=== PATIENT | female | born 1940 | race Hispanic/Latino ===

== ENCOUNTER 2017-06-15 09:59 | Outpatient (CLI) | payer MEDICARE, MEDICAID ==
--- NOTE | 2017-06-15 10:26 | RAD ---
ABDOMEN ONE VIEW: History: Abdominal pain. Comparison: None. FINDINGS: There is mild degenerative changes of the thoracolumbar spine. Mild levoscoliosis. No phleboliths in the pelvis. There are degenerative changes of the SI joints. IMPRESSION: No acute intraabdominal abnormality. POS: [facility]
== END 2017-06-15 10:00 | disposition home or self-care (01) ==
LOC: RAD-FRANK 09:59
PROVIDERS: ATTEND Nurse Practitioner Family
DX: R10.9 Unspecified abdominal pain (principal)
CPT/HCPCS: 74018

== ENCOUNTER 2017-07-06 09:09 | Outpatient (CLI) | payer MEDICARE, MEDICAID ==
--- NOTE | 2017-07-06 11:32 | RAD ---
EXAM: LUMBAR SPINE 3 VIEWS: COMPARISON: 12/20/16. HISTORY: Lumbar radiculopathy. Pain radiates down the right leg x 3 months. FINDINGS: Lateral neutral, lateral extension, and lateral flexion of the lumbar spine are submitted for interpr etation. The lateral neutral radiograph is slightly limited due to motion. There are 5 lumbar-type vertebral bodies. There is approximately 1 cm of anterolisthesis of L4 upon L5 in the neutral positi on. Upon flexion, there is 1.4 cm anterolisthesis of L4 upon L5. Upon extension, there is 0.7 cm of anterolisthesis of L4 upon L5. There is degenerative change at L5-S1 with significant osteophyte formation. IMPRESSION: Anterolisthesis (grade II) of L4 upon L5 with worsening upon flexion and slight decrease upon extensi on. POS: [facility]
== END 2017-07-06 09:10 | disposition home or self-care (01) ==
LOC: TBSIIMAG 09:09
PROVIDERS: ATTEND Neurological Surgery
DX: M54.16 Radiculopathy, lumbar region (principal); M43.16 Spondylolisthesis, lumbar region
CPT/HCPCS: 72100

== ENCOUNTER 2017-08-18 15:46 | Outpatient (CLI) | payer MEDICARE, MEDICAID ==
[2017-08-18 16:21] LABS: Hemoglobin 11.8 g/dL (12.0-16.0); Mean Corpuscular HGB CONC 33.6 g/dL (32.0-36.0); Mean Corpuscular Volume 89.4 fl (81.0-99.0); Mean Platelet Volume 8.4 fL (7.4-10.4); Platelet Count 217 thou/uL (130-400); RBC Distribution Width 11.9 % (11.5-14.5); Red Blood Cell (RBC) Count 3.92 mill/uL (4.20-5.40); White Blood Cell (WBC) Count 5.4 thou/uL (4.8-10.8)
[2017-08-18 16:26] LABS: INR-International Normal Ratio 1.1; PTT 31.9 SEC (22.9-36.1); Prothrombin Time 14.8 SEC (12.0-14.7)
[2017-08-18 16:53] LABS: Anion Gap 12 mmol/L (10-20); BUN (Urea Nitrogen) 14 mg/dL (9.8-20.1); Calc. Creatinine Clearance 0 mL/min (70-130); Calcium 8.7 mg/dL (7.8-10.44); Carbon Dioxide 25 mmol/L (23-31); Chloride 106 mmol/L (98-107); Estimated GFR-MDRD Greater than 90; Glucose 112 mg/dL (83-110); Potassium 3.6 mmol/L (3.5-5.1); Sodium 139 mmol/L (136-145)
== END 2017-08-18 15:47 | disposition home or self-care (01) ==
LOC: LABBT 15:46
PROVIDERS: ATTEND Neurological Surgery
DX: Z01.812 Encounter for preprocedural laboratory examination (principal); M43.16 Spondylolisthesis, lumbar region
CPT/HCPCS: 80048; 85027; 85610; 85730

== ENCOUNTER 2017-08-18 16:00 | Inpatient (IN) | payer MEDICARE, MEDICAID ==
[2017-08-18 16:11] VITALS: BMI 41.8
--- NOTE | 2017-08-22 17:34 | HP ---
HISTORY OF PRESENT ILLNESS: Ms. Brady is a 76-year-old female who presents with low back pain a nd left leg pain to the ankle. He is also very tender over the left greater trochanteric bursitis an d SI joint. He has had this pain with internal rotation of the left hip. The pain has been present intermittently for 1 year; however, this is worse in the past 3 months. She has had physical therapy and injections. The pain is made worse with standing and lying flat. The pain is made somewhat bet ter with tramadol and taking steroids. She has seen her primary care physician and had an x-ray that showed a grade 2 spondylolisthesis at L4-L5 and she has had good strength in bilateral lower extremi ties. She denies any bowel or bladder incontinence. REVIEW OF SYSTEMS: Ten-point review of systems is complete and is otherwise negative unless stated a wil in HPI. PAST MEDICAL HISTORY: Diabetes, thyroid, hypertension, and high cholesterol. PAST SURGICAL HISTORY: Hysterectomy, left rotator cuff repair, complete thyroidectomy, and left TKR in 2016. HOSPITALIZATIONS: For surgery. FAMILY HISTORY: Father is diagnosed with diabetes, hypertension, and stroke. Mother is diagnosed wi th diabetes and hypertension. SOCIAL HISTORY: The patient denies any tobacco or alcohol use. She is a . MEDICATIONS: Taking, 1. Gabapentin 100 mg capsule orally 3 times a day. 2. Metformin HCL. 3. Levothyroxine sodium. 4. Glyburide. 5. Meloxicam. 6. Lisinopril/hydrochlorothiazide. 7. Tramadol 50 mg tablet 1 tablet orally q.6 hours for pain. 8. Cipro 500 mg tablet 1 tab orally twice a day. ALLERGIES: No known drug allergies. PHYSICAL EXAMINATION: HEENT: Normocephalic, atraumatic. Hearing intact. Moist mucous membranes. Trachea is midline. EYES: Pupils are equal and reactive to light. Extraocular muscles are intact. Sclerae is white, no nicteric. PSYCHIATRIC: Normal mood and affect. CARDIOVASCULAR/CARDIOPULMONARY: No cyanosis or clubbing noted. Intact pedal pulses bilaterally. MUSCULOSKELETAL: Lower extremity, 5/5 strength in bilateral iliopsoas, quadriceps, hamstrings, right tibialis anterior, extensor hallus longus. Sensory deficits in the left L5 nerve dermatome. Tender to palpation in the midline lumbar spine over the bilateral SI. Trochanteric bursitis. RESPIRATORY: The patient has bilateral symmetric chest rise. Appears to have no shortness of breath . NEUROLOGIC: Cranial nerves II-XII are grossly intact. Speech is fluent. Patient has antalgic gait and station. ASSESSMENT: 1. The patient has spondylolisthesis of L4-L5 level. 2. Lumbago with sciatica, left side. 3. Chronic pain. 4. Lumbar radiculopathy. The patient has tried conservative therapy including injections and physic al therapy; however, these have not given him full relief. IMAGING: MRI of the brain is normal. There is no stroke that caused her acute deterioration in the walking. Dr. Padron recommended an ACDF at C5-C7 for cervical stenosis and cord compression in . The patient recently visited Dr. Padron in 06/2017. MRI of the lumbar spine shows L3-L4 sten osis and L4-L5 lateral recess with listhesis, L2-L3 moderate disease. Flexion, extension x-rays are unstable L4-L5 interspace with greater than 5 mm of excursion between flexion and extension. PLAN: Dr. Padron offered a L3-L5 laminectomy with an L4-L5 TLIF. There is a striking instability in the lumbar spine. Informed consent was given. We discussed the indications, risks, benefits, an d expected results from surgery. The risks discussed included, but were not limited to bleeding, inf ection, CSF leak, nerve damage, weakness, incontinence, cauda equina injury, arachnoiditis, paralysis , ventilator dependence, wheelchair dependence, loss of vision, hardware misplacement, cardiopulmonar y complications of anesthesia or . Long-term complications discussed included, but were not kaplan ited to degeneration of the surrounding disk and future surgery. She understands risks and is willin g to proceed with the surgery. The patient is a diabetic patient. so she may need suture closure, a ntibiotics and bone stimulator.
[2017-08-24] MEDS ORDERED: Sodium Chloride 0.9% 30 ML ONE (06:23)
[2017-08-24] MEDS ORDERED: Bupivacaine HCl 0.5%/Epinephrine 1:200,000/PF 30 ml Vial ONE (06:23)
[2017-08-24] MEDS ORDERED: Thrombin 5000 UNITS/5 ML VIAL ONE ×2 (06:23→09:12)
[2017-08-24] MEDS ORDERED: Albumin 5% 500 ML ONE (06:42)
[2017-08-24] MEDS ORDERED: Phenylephrine HCL 10 MG/ML VIAL ONE (06:42)
[2017-08-24] MEDS ORDERED: Fentanyl 250 MCG/5 ML VIAL ONE (06:56)
[2017-08-24] MEDS ORDERED: CEFAZOLIN/Water 2 GM/20 ML SYRINGE ONE (06:58)
[2017-08-24] MEDS ORDERED: Metoclopramide HCl 10 MG/2 ML VIAL ONE ×2 (09:44→15:09)
[2017-08-24] MEDS ORDERED: Meperidine HCl/PF 25 MG/ML VIAL SLOW IVP PRN (11:24)
[2017-08-24] MEDS ORDERED: HYDROmorphone 2 MG/ML VIAL SLOW IVP PRN (11:24)
[2017-08-24] MEDS ORDERED: Morphine Sulfate 2 MG/ML SYRINGE SLOW IVP PRN (11:24)
[2017-08-24] MEDS ORDERED: Ondansetron HCl/PF 4 MG/2 ML Vial IVP PRN ×2 (11:24→11:27)
[2017-08-24] MEDS ORDERED: Promethazine HCl 25 MG/ML VIAL SLOW IVP PRN (11:24)
[2017-08-24] MEDS ORDERED: Promethazine HCl 25 MG/ML VIAL IM PRN (11:24)
[2017-08-24] MEDS ORDERED: HYDROmorphone 0.5 MG/0.5 ML SYRINGE ONE ×3 (11:25→12:22)
[2017-08-24] MEDS ORDERED: Acetaminophen/Codeine 30-300mg Tablet PO PRN (11:27)
[2017-08-24] MEDS ORDERED: Morphine 4 MG/ML VIAL SLOW IVP PRN ×2 (11:27)
--- NOTE | 2017-08-24 12:04 | OP ---
DATE OF PROCEDURE: 08/24/2017 SURGEON: Angela Padron M.D. HARDWARE DEVELOPER: Kenneth Wang PA-C. PREOPERATIVE INDICATION: Treat pain, prevent neurological deterioration. PREOPERATIVE DIAGNOSES: Lumbar stenosis with neurogenic claudication and L4-5 spondylolisthesis with foraminal stenosis from subluxation and instability. POSTOPERATIVE DIAGNOSES: Lumbar stenosis with neurogenic claudication and L4-5 spondylolisthesis wit h foraminal stenosis from subluxation and instability. OPERATIVE PROCEDURE: Decompressive laminectomy, medial facetectomy, foraminotomy L3-4, L4-5, transfo raminal lumbar interbody arthrodesis L4-L5, placement of intervertebral biomechanical device L4-L5, p edicle screw and martha instrumentation L4-L5, posterolateral arthrodesis L4-L5, local morselized autogr aft, morselized Allograft. PREOPERATIVE MEDICATION: Ancef 2 grams IV. DRAIN NUMBER: Zero. DRAIN TYPE: None. OPERATIVE DICTATION: The patient was brought to the operating room. General endotracheal anesthesia was induced. The patient was positioned prone on the Jack frame with appropriate padding for the chest and hips. A lateral fluoro radiograph was used to plan our incision. The lumbar skin was filiberto rilely prepped and draped. We opened with a 10 blade knife and controlled bleeding with bipolar and monopolar cautery. We used monopolar cautery to dissect through subcutaneous tissues to the thoracod orsal fascia. We incised the fascia in the midline and we reflected the paraspinal muscles off the s pinous process and lamina of L3, L4, L5. A self-retaining retractor was placed and a lateral fluoro radiograph confirmed the levels upon which we were operating. We then used Adson rongeurs to remove the spinous processes from L3 to the top of L5 and Kerrison rongeurs to fashion a laminectomy. We wi dened our laminectomy defect until we were flush with the L3, L4, L5 pedicles. We performed medial f acetectomies to undermine the lateral recesses and performed foraminotomies with foraminotomy Kerriso n's over the exiting nerve roots at L3, L4, and L5. At completion of our neural decompression, we tu rned our attention to arthrodesis. We removed the entire facet joint at L4-5 on the right side. Through the foramen we could access the intervertebral space. We incised the intervertebral space and removed disk contents using curettes and rongeurs. We brought a rectangular shaped bone rasp into the field. We used this to prepare the endplates for grafting ends and measured the height of the interspace to 12 mm. We prepared the end plates with curettes as well. We irrigated with bacitracin irrigation. We then brought a 12 mm PEEK intervertebral graft in the field. Our laminectomy bone was carefully cleaned on the back table, al l soft tissue was removed and it was morcellized into demineralized bone matrix as our fusion substra te. The substrate was packed into our PEEK graft and the graft was advanced into the interspace unde r radiographic guidance to the appropriate depth. We turned our attention to pedicle screw instrumen tation. Using bony anatomic landmarks, palpation of the medial portion of the pedicles, and a lateral fluoro radiograph as a guide, we chose entry points for pedicle screws at L4, L5. We drilled out our entry points and used the bone awl to fashion a trajectory through the pedicles into the vertebral bodies. We tapped the trajectories, probed them and found them completely encased in bone. We placed 6.5 mm diameter screws at L4 and L5 bilaterally. A 360 degree image set was generated with our isocentric C-arm. This confirmed adequate positioning of our pedicle screws. We then brought rods down in the screw heads and tightened caps over the rods. Using a uwjpnr-munogua-wjqjie mechanism, we ensured ad equate tightness. Before final tightening, we used compression across the interspace to keep her int erbody graft in place. We irrigated the posterolateral spine. We used high speed drill to decortica te the transverse process of L4 and L5 bilaterally. Over the decorticated bone, we left demineralize d bone matrix and morselized autograft as are posterolateral fusion substrate. We irrigated the cent er of the incision once again with bacitracin irrigation. We treated the wound with vancomycin powde r and closed the wound in anatomic layers. We applied a sterile dressing. This was a clean case and no contamination.
[2017-08-24] MEDS: Sodium Chloride 0.9% 1,000 ML IV SCH ×2 (13:35→22:06)
[2017-08-24] MEDS: CEFAZOLIN/Water 2 GM/20 ML SYRINGE SLOW IVP SCH ×2 (14:36→22:14)
[2017-08-24] MEDS ORDERED: Glycopyrrolate 0.2 MG/ML 5 ML SYRINGE ONE (15:09)
[2017-08-24] MEDS ORDERED: Lidocaine 1% PF 5 ML VIAL ONE (15:09)
[2017-08-24] MEDS ORDERED: Ondansetron HCl/PF 4 MG/2 ML Vial ONE (15:09)
[2017-08-24] MEDS ORDERED: PHENYLEPHRINE-NS 100 MCG/ML 10 ML SYRINGE ONE (15:09)
[2017-08-24] MEDS ORDERED: Propofol 200 MG/20 ML VIAL ONE (15:09)
[2017-08-24] MEDS ORDERED: ePHEDrine/0.9% NaCl/PF SYRINGE 50 mg/10 ml ONE (15:09)
[2017-08-24] MEDS: metFORMIN 500 MG TAB PO SCH (17:56)
[2017-08-24] MEDS ORDERED: Prevnar 13-Val Conj/PF 0.5 ML SYRINGE IM ONE (21:00)
[2017-08-24] MEDS ORDERED: FLU VACC TS2017-18 (>65YR) 0.5 ML SYRINGE IM ONE (21:00)
[2017-08-24] MEDS: Pravastatin Sodium 20 MG TAB PO SCH (21:52)
[2017-08-24] MEDS: Lisinopril/Hydrochlorothiazide 20 mg/12.5 mg Tablet PO SCH (21:52)
[2017-08-24] MEDS: Oxybutynin 5 MG TAB PO SCH (21:54)
[2017-08-25] MEDS: Cyclobenzaprine 10 MG TAB PO PRN ×2 (04:18→23:00)
[2017-08-25 05:03] LABS: #Lymphocytes 0.9 thou/uL (1.20-3.40); #Monocytes 0.6 thou/uL (0.11-0.59); #Neutrophils 5.4 thou/uL (1.40-6.50); %Basophils 0.1 % (0.0-1.0); %Eosinophils 0.3 % (0.0-10.0); %Lymphocytes 13.4 % (21.0-51.0); %Monocytes 8.7 % (0.0-10.0); %Neutrophils 77.5 % (42.0-75.0); Mean Corpuscular HGB CONC 34.4 g/dL (32.0-36.0); Mean Corpuscular Hemoglobin 31.5 pg (27.0-31.0); Mean Corpuscular Volume 91.6 fl (81.0-99.0); Mean Platelet Volume 8.3 fL (7.4-10.4); Platelet Count 192 thou/uL (130-400); RBC Distribution Width 11.8 % (11.5-14.5); Red Blood Cell (RBC) Count 3.18 mill/uL (4.20-5.40); White Blood Cell (WBC) Count 6.9 thou/uL (4.8-10.8)
[2017-08-25] MEDS: Levothyroxine Sodium 125 MCG TAB PO SCH (05:39)
--- NOTE | 2017-08-25 07:13 | PRG ---
DATE OF SERVICE: 08/25/2017 Ms. Brady is status post 1 day from a L3 through L5 laminectomy and L4-L5 TLIF for spondylolisth esis. She has been able to get up and walk approximately 300 feet with PT. She has been wearing the LSO brace. She has been able to tolerate regular diet and her pain was well controlled with pain me dication. Overnight, there have been no acute events. Her vital signs have been stable. She is afe brile. She had a bout of tachycardia this morning at 1:03. Her hemoglobin this morning is 10. On c hemistry exam, her glucose is 148. She is doing well. She can continue to work with physical therap y throughout the day today. If she is doing well ambulating then we can consider discharge home. If there are any further questions, please feel free to contact Neurosurgery.
--- NOTE | 2017-08-25 07:19 | PRG ---
DATE OF SERVICE: 08/25/2017 Ms. Brady is 1 day out from decompression fusion lumbar spine. The radiating neurogenic pain in her lower extremities is gone. Her back is sore. She has already been out of bed and walking. She is doing quite well given her surgery. Her vital signs have been stable. I do not find any new neurological deficits. We will ask physical therapy to work with her today and once she is safe for her activities of daily living, she can be discharged from the hospital.
[2017-08-25] MEDS: Lisinopril/Hydrochlorothiazide 20 mg/12.5 mg Tablet PO SCH ×2 (09:53→23:00)
[2017-08-25] MEDS: Liothyronine Sodium 25 MCG TAB PO SCH (09:53)
[2017-08-25] MEDS: Oxybutynin 5 MG TAB PO SCH ×2 (09:54→23:04)
[2017-08-25] MEDS: Acetaminophen/Codeine 30-300mg Tablet PO PRN ×2 (09:54→13:21)
[2017-08-25] MEDS: metFORMIN 500 MG TAB PO SCH ×2 (09:54→17:12)
[2017-08-25] MEDS: Potassium Chloride 10 MEQ TAB PO SCH (09:54)
[2017-08-25] MEDS: Sodium Chloride 0.9% 1,000 ML IV SCH (14:02)
[2017-08-25] MEDS ORDERED: Sodium Chloride 0.9% 500 ML IVPB SCH (16:00)
[2017-08-25] MEDS: Pravastatin Sodium 20 MG TAB PO SCH (23:02)
[2017-08-26] MEDS ORDERED: Acetaminophen 325 MG TAB PO SCH (00:45)
[2017-08-26] MEDS: Sodium Chloride 0.9% 1,000 ML IV SCH ×2 (05:12→08:35)
[2017-08-26] MEDS: Levothyroxine Sodium 125 MCG TAB PO SCH (06:18)
[2017-08-26] MEDS: Lisinopril/Hydrochlorothiazide 20 mg/12.5 mg Tablet PO SCH (08:25)
[2017-08-26] MEDS: Oxybutynin 5 MG TAB PO SCH (08:34)
[2017-08-26] MEDS: Liothyronine Sodium 25 MCG TAB PO SCH (08:34)
[2017-08-26] MEDS: Potassium Chloride 10 MEQ TAB PO SCH (08:34)
[2017-08-26] MEDS: metFORMIN 500 MG TAB PO SCH (08:34)
--- NOTE | 2017-08-26 10:14 | PRG ---
DATE OF SERVICE: 08/26/2017 Ms. Brady is 2 days out from decompression fusion of lumbar spine. She had a low grade fever ov ernight. Otherwise, she is doing well. She ambulated and walked around the hallway 3 times yesterda y. Her legs feel better than they did before surgery. Her back is understandably sore. I do not find any neurological deficits. For this low grade fever, we will get a urine culture and u rinalysis. We will ask her to use the incentive spirometer more frequently and I will scan her legs for any DVT. If all of these tests are negative, we can send her home today.
[2017-08-26 11:24] LABS: Bilirubin Negative (Negative); Blood, Urine Negative (Negative); Clarity CLEAR (Clear); Glucose, Urine (Dipstick) Negative (Negative); Leukocyte Negative (Negative); Nitrite Negative (Negative); Protein, Urine (Dipstick) Negative (Neg-Trace); Specific Gravity, Urine 1.015 (1.002-1.036); pH, Urine 5.5 (5.0-9.0)
[2017-08-26 11:29] LABS: Bacteria/HPF None Seen HPF (None Seen); Hyaline Casts/LPF 4-6 HYALINE CAST LPF (0-3 Hyaline); Pathc Cast-AUWi Flag 0.81 (0-2.49); RBC/HPF 0-3 HPF (0-3); Squamous Epithelial 0-3 HPF (0-3); WBC/HPF 0-3 HPF (0-3)
[2017-08-26] MEDS: Acetaminophen/Codeine 30-300mg Tablet PO PRN (14:41)
--- NOTE | 2017-08-26 15:02 | ULT ---
BILATERAL LOWER EXTREMITY VENOUS DUPLEX ULTRASOUND INCLUDING COLOR AND SPECTRAL DOPPLER IMAGING: HISTORY: A 76-year-old female with immobility. FINDINGS: Exam performed from groin to ankle including greater saphenous, common femoral, superficial femoral, profunda femoral, popliteal, trifurcation, and posterior tibial vein regions. Phasic flow noted at a ll levels with normal compressibility and normal augmentation. Minimal bilateral subcutaneous edema of the lower extremities. IMPRESSION: Minimal bilateral lower extremity subcutaneous edema. No evidence for deep venous thrombosis. POS: [facility]
[2017-08-26 15:24] VITALS: BP 106/67; TEMP 100.5
--- NOTE | 2017-08-26 16:48 | PRG ---
DATE OF SERVICE: 08/26/2017 SUBJECTIVE: Ms. Brady is a 76-year-old female. I saw her room this morning. She is status post laminectomy and TLIF. She has been ambulating in the hagan. This morning, she had T-max of 101.6 and p.o. Tylenol was given which resolved the fever. This morning, I have ordered urine culture. Venous ultrasound of bilateral, check for DVTs in the lower extremity and she needs to use her ventolin frequently. Physical therapy has assessed her this morning and all of those exams are negative. She is safe for activities of daily living and she can go home. I put the discharge plan in and please call for verbal discharge order. If there are any further questions, please feel free to contact Neurosurgery. GAUDENCIO
--- NOTE | 2017-08-26 17:03 | RAD ---
CHEST PA AND LATERAL: 08/26/17 HISTORY: 76-year-old female with history of fever, status post lumbar fusion. Atherosclerotic ectatic changes of the aorta. No confluent pneumonia, overt edema or pleural effusion s. IMPRESSION: Somewhat less than optimal inspiration. No confluent pneumonia or other acute process. POS: [facility]
--- NOTE | 2017-08-28 09:21 | DIS ---
DATE OF ADMISSION: 08/24/2017 DATE OF DISCHARGE: 08/26/2017 ADMISSION DIAGNOSES: Lumbar spinal stenosis with neurogenic claudication. DISCHARGE DIAGNOSES: Lumbar spinal stenosis with neurogenic claudication; however, symptoms have imp roved. CONSULTATIONS: Physical therapy. PROCEDURES: Decompressive laminectomy, medial facetectomy, and foraminotomy at L3-L5 transforaminal interbody arthrodesis at L4-L5 and placement of biomechanical device rods and screws at L4-L5. BRIEF HISTORY OF PRESENT ILLNESS: Ms. Brady is a 76-year-old female, who presents to our office with back pain and leg pain in the ankles. The pain is worse in the legs whenever she is walking. Over the past 3 months, the pain has gotten worse and she has tried steroids and injections, analgesi cs, and physical therapy that have not given permanent relief. She also has a grade II spondylolisth esis at L4-L5. She denies any bowel or bladder incontinence at the time. Nothing we tried has given permanent relief so she has opted for neurosurgical intervention. HOSPITAL COURSE: Over the course of her hospital stay there have been no acute events. Please see aruna myers notes. DISCHARGE PHYSICAL EXAMINATION: HEENT: Head is normocephalic, atraumatic. Hearing intact. Moist mucous membranes. Trachea is midl ine. EYES: Pupils are equal and reactive to light. Extraocular muscles are intact. Sclerae is white, no nicteric. CARDIOVASCULAR: The patient has regular rate and rhythm, normal S1 and S2. Heart sounds, no distal cyanosis or clubbing. RESPIRATORY: The patient has bilateral symmetric chest rise. Appears to be in no shortness of breat h. MUSCULOSKELETAL: A 5/5 strength bilaterally in the upper and lower extremities. NEUROLOGIC: Cranial nerves II-XII are grossly intact. Speech is fluent and she answers my questions appropriately. There are no focal sensory or motor deficits. ACTIVITY: The patient can have regular activity upon discharge. DIET: The patient can have a regular diet upon discharge. HOME MEDICATIONS: Include cefdinir, metformin, pravastatin sodium, calcium chloride, oxybutynin, met oprolol succinate, lisinopril, hydrochlorothiazide, levothyroxine sodium, cyclobenzaprine, and Tyleno l No. 3.
== END 2017-08-26 17:45 | disposition home health service (06) | DRG 455 ==
LOC: SURG A 08-24 05:40 → SURG B 08-24 12:09
PROVIDERS: ADMIT Neurological Surgery; ATTEND Neurological Surgery
PROC: 0SG00AJ Fusion of Lumbar Vertebral Joint with Interbody Fusion Device, Posterior Approach, Anterior Column, Open Approach (ICD-10-PCS; principal; 2017-08-24)
PROC: 0SG0071 Fusion of Lumbar Vertebral Joint with Autologous Tissue Substitute, Posterior Approach, Posterior Column, Open Approach (ICD-10-PCS; 2017-08-24)
PROC: 01NB0ZZ Release Lumbar Nerve, Open Approach (ICD-10-PCS; 2017-08-24)
DX: M43.16 Spondylolisthesis, lumbar region (principal); E11.9 Type 2 diabetes mellitus without complications; M54.16 Radiculopathy, lumbar region; I10 Essential (primary) hypertension; Z79.84 Long term (current) use of oral hypoglycemic drugs; M48.062 Spinal stenosis, lumbar region with neurogenic claudication; E78.5 Hyperlipidemia, unspecified
CPT/HCPCS: 36415; 36416; 71046; 76001; 81001; 85025; 87086; 90471; 90682; 93970; A4216; C1713; C1768; G0008; G8978-GP-CK; G8979-GP-CI; J0131; J0670; J1170; J2001; J2270; J2370; J2405; J2704; J2765; J3010; J3370; J3490; J7050; P9045; Q2036

== ENCOUNTER 2017-10-11 09:14 | Outpatient (CLI) | payer MEDICARE, MEDICAID ==
--- NOTE | 2017-10-11 11:14 | RAD ---
RADIOGRAPH LUMBAR SPINE 3 VIEWS: DATE: 10-11-17 HISTORY: 76-year-old female with lumbar radiculopathy, M54.16. COMPARISON: 07-06-17 FINDINGS: There is a transitional level at the thoracolumbar junction. For the purposes of this report, the lev el with small hypoplastic ribs will be designated as T12. The last lumbar type vertebra will be desig nated as L5. The grade I anterolisthesis of L4 on L5 demonstrated previously appears worse on the current neutral view compared to the previous. There has been interval placement of bilateral pedicle screws and post erior onlay bone chips, adjacent to the posterior elements. There has been interval laminectomies at L3-4 and L4-5. Again demonstrated is the disc space narrowing at all levels, moderate and severe. Stephon tebral body heights are maintained. Mild left-convex lateral curvature of thoracolumbar junction. Dif fuse osteopenia. Interval placement of metallic markers for interbody bone graft at L4-5 disc space. IMPRESSION: 1. Interval posterior lumbar interbody fusion to stabilize the now grade II spondylolisthesis at L4-5 , with pedicle screws. 2. Status post laminectomies at L3-4 and L4-5. 3. Multilevel moderate and severe degenerative disc disease. 4. Lumbar spondylosis. IMPRESSION: [] SANDRA POS: [facility]
== END 2017-10-11 09:15 | disposition home or self-care (01) ==
LOC: TBSIIMAG 09:14
PROVIDERS: ATTEND Neurological Surgery
DX: M51.16 Intervertebral disc disorders with radiculopathy, lumbar region (principal); M47.26 Other spondylosis with radiculopathy, lumbar region; M43.16 Spondylolisthesis, lumbar region; Z98.890 Other specified postprocedural states
CPT/HCPCS: 72100

== ENCOUNTER 2018-01-02 11:53 | Outpatient (CLI) | payer MEDICARE, MEDICAID | END 2018-01-02 11:54 | disposition home or self-care (01) | LOC: BICRAD 11:53 | PROVIDERS: ATTEND Neurological Surgery | DX: M54.16 Radiculopathy, lumbar region (principal); M46.96 Unspecified inflammatory spondylopathy, lumbar region; Z98.890 Other specified postprocedural states | CPT/HCPCS: 72100 ==

== ENCOUNTER 2018-01-25 14:36 | Outpatient (CLI) | payer MEDICARE, MEDICAID ==
--- NOTE | 2018-01-25 15:33 | RAD ---
LUMBAR SPINE THREE VIEWS: HISTORY: Low back pain. COMPARISON: 10/11/2017 FINDINGS: Stable post surgical changes at L4-L5. Bilateral transpedicular screws and bone graft material are d emonstrated. There is a prosthesis at the L4-L5 disk space. No perihardware lucency. Approximately 1 cm of anterolisthesis of L4-L5 (previously 1 cm of anterolisthesis as well). Stable loss of disk space height and osteophyte formation. IMPRESSION: Grade 2 spondylolisthesis at L4-L5. Stable fusion changes. POS: [facility]
== END 2018-01-25 14:37 | disposition home or self-care (01) ==
LOC: RAD-FRANK 14:36
PROVIDERS: ATTEND Nurse Practitioner Family
DX: M54.5 Low back pain (principal); M43.16 Spondylolisthesis, lumbar region; Z98.1 Arthrodesis status
CPT/HCPCS: 72100

== ENCOUNTER 2018-03-04 07:43 | Observation (INO) | payer MEDICARE, MEDICAID ==
[2018-03-04] MEDS ORDERED: Morphine 4 MG/ML VIAL ONE (08:40)
[2018-03-04] MEDS ORDERED: Lidocaine 1% w/Epinephrine 1:100K 20 ML VIAL ONE (09:10)
[2018-03-04 09:25] LABS: #Eosinphils 0.1 thou/uL (0.0-0.7); #Lymphocytes 1.3 thou/uL (1.20-3.40); #Monocytes 0.6 thou/uL (0.11-0.59); #Neutrophils 11.3 thou/uL (1.40-6.50); %Basophils 0.2 % (0.0-1.0); %Eosinophils 0.9 % (0.0-10.0); %Monocytes 4.1 % (0.0-10.0); %Neutrophils 84.9 % (42.0-75.0); Hemoglobin 11.9 g/dL (12.0-16.0); Mean Corpuscular HGB CONC 33.2 g/dL (32.0-36.0); Mean Corpuscular Hemoglobin 30.7 pg (27.0-31.0); Mean Corpuscular Volume 92.4 fL (78.0-98.0); Mean Platelet Volume 8.4 fL (7.4-10.4); Platelet Count 265 thou/uL (130-400); RBC Distribution Width 14.4 % (11.5-14.5); Red Blood Cell (RBC) Count 3.87 mill/uL (4.20-5.40); White Blood Cell (WBC) Count 13.4 thou/uL (4.8-10.8)
[2018-03-04 09:56] LABS: Troponin I Less than 0.010 ng/mL (< 0.028)
[2018-03-04 09:59] LABS: ALT (SGPT) 11 U/L (8-55); AST (SGOT) 25 U/L (5-34); Albumin 4.1 g/dL (3.4-4.8); Alkaline Phosphatase 83 U/L (40-150); Anion Gap 13 mmol/L (10-20); BUN (Urea Nitrogen) 13 mg/dL (9.8-20.1); Bilirubin, Total 0.8 mg/dL (0.2-1.2); Calc. Creatinine Clearance 0 mL/min (70-130); Calcium 9.2 mg/dL (7.8-10.44); Carbon Dioxide 27 mmol/L (23-31); Chloride 101 mmol/L (98-107); Estimated GFR-MDRD 74; Globulin 3.4 g/dL (2.4-3.5); Glucose 155 mg/dL (83-110); Potassium 3.8 mmol/L (3.5-5.1); Protein, Total 7.5 g/dL (6.0-8.3); Sodium 137 mmol/L (136-145)
[2018-03-04 10:03] LABS: CKMB 8.7 ng/mL (0-6.6)
[2018-03-04] MEDS ORDERED: Adacel (T-DAP) 0.5 ML VIAL ONE (10:26)
[2018-03-04] MEDS ORDERED: Bacitracin Zinc 1 Packet ONE (11:05)
--- NOTE | 2018-03-04 11:50 | CT ---
NONCONTRAST CT HEAD: DAET: 03/04/18. HISTORY: Fall with pain to the left side of head. The patient hit head on table when falling. FINDINGS: There is no evidence of a hemorrhage, acute infarction, mass effect, or midline shift. Ventricular s ystem is normal in size, shape, and position. There is a large area of increased density, scalp soft tissue swelling in the biparietal regions, much greater on the right. There are overlying skin clip s in the region of soft tissue swelling. No underlying calvarial fracture is seen. The visualized p aranasal sinuses and mastoid air cells are clear. IMPRESSION: 1. No acute intracranial abnormalities demonstrated. 2. Prominent scalp hematoma in the biparietal regions, but greater on the right. There are skin cli ps seen within the scalp soft tissues suggesting laceration. POS: [facility]
--- NOTE | 2018-03-04 12:07 | RAD ---
TWO VIEWS OF THE CHEST: COMPARISON: 08/26/17. HISTORY: Dizzy spell. Chest pain. FINDINGS: The patient fell and hit head on coffee table. FINDINGS: Two views of the chest show normal sized cardiomediastinal silhouette. There is no evidence of consol idation, mass, or pleural effusion. Degenerative changes are seen in the spine. IMPRESSION: No evidence of acute cardiopulmonary disease. POS: [facility]
[2018-03-04 13:38] LABS: Troponin I Less than 0.010 ng/mL (< 0.028)
[2018-03-04 13:56] VITALS: BMI 32.8
[2018-03-04] MEDS ORDERED: Dextrose 50% Abboject 50 ML SYRINGE SLOW IVP PRN (14:32)
[2018-03-04] MEDS ORDERED: Dextrose 5% in Water 1,000 ML IV PRN (14:32)
[2018-03-04] MEDS ORDERED: HumaLOG 300 UNITS/3 ML VIAL SC PRN (14:32)
[2018-03-04] MEDS ORDERED: Bisacodyl 5 MG TAB PO PRN (14:32)
[2018-03-04] MEDS ORDERED: Acetaminophen 325 MG TAB PO PRN (14:32)
[2018-03-04] MEDS: Sodium Chloride 0.9% 1,000 ML IV SCH (16:06)
[2018-03-04] MEDS ORDERED: Meclizine HCl 25 MG TAB PO PRN (16:15)
[2018-03-04 16:21] LABS: Bilirubin Negative (Negative); Blood, Urine Trace (Negative); Clarity CLEAR (Clear); Glucose, Urine (Dipstick) Negative (Negative); Leukocyte Trace (Negative); Nitrite Negative (Negative); Protein, Urine (Dipstick) Negative (Neg-Trace); Specific Gravity, Urine 1.016 (1.002-1.036); pH, Urine 6.5 (5.0-9.0)
[2018-03-04 16:22] LABS: Troponin I Less than 0.010 ng/mL (< 0.028)
[2018-03-04 16:23] LABS: Bacteria/HPF None Seen HPF (None Seen); Hyaline Casts/LPF 0-3 HYALINE CAST LPF (0-3 Hyaline); Squamous Epithelial 0-3 HPF (0-3); WBC/HPF 0-3 HPF (0-3)
[2018-03-04] MEDS: metFORMIN 500 MG TAB PO SCH (17:25)
--- NOTE | 2018-03-04 18:06 | HP ---
PRIMARY CARE PROVIDER: DIVINA Herrmann CHIEF COMPLAINT: Passing out. HISTORY OF PRESENT ILLNESS: Ms. Brady is a pleasant 77-year-old lady who was seen at [facility] on 03/04/2018. She reports that she has been having occasional dizzy spells over the last 6 months. She also report s that recently her clonidine dose was increased to 0.2 mg daily, presumably because of elevated bloo d pressure. She woke up around 5:30 a.m. today. She went to the kitchen and was getting ready to make coffee. S he does not recall what happened. Around 6:30, she was found on the floor. She denies any fecal or urinary incontinence. She denies any chest pain or shortness of breath. She denies any fevers or ch ills. She denies any palpitations. She denies any previous occurrence of similar episodes. She bharat tained a laceration to the back of her head. REVIEW OF SYSTEMS: All other systems reviewed and found to be negative. PAST MEDICAL HISTORY: Diabetes mellitus, hypertension, dyslipidemia. PAST SURGICAL HISTORY: Left shoulder surgery, right ankle surgery, hysterectomy, and back surgery. SOCIAL HISTORY: The patient denies tobacco use, alcohol use or recreational drug use. FAMILY HISTORY: Stroke in her father. ALLERGIES: No known drug allergies. CURRENT MEDICATIONS: Clonidine 0.2 mg 2 times a day, metformin 500 mg 2 times a day, metoprolol tart rate 25 mg 2 times a day, Nexium 40 mg daily, pravastatin 10 mg at bedtime, lisinopril/hydrochlorothi azide 20/12.5 mg 2 times a day, meclizine 25 mg as needed, oxybutynin 5 mg 2 times a day. PHYSICAL EXAMINATION: GENERAL: Ms. Brady is awake and alert, not in acute distress. VITAL SIGNS: Blood pressure is 112/58, pulse 71, respiratory rate 20, and oxygen saturation 96% on r oom air. Her semi-Ace's blood pressure is 112/58, sitting blood pressure is 107/68 and standing b lood pressure is 96/63. She is obese, with a BMI of 32.8. EYES: No scleral icterus. No conjunctival pallor. ENT: Dry mucosal membranes, no oropharyngeal erythema or exudates. NECK: Supple, nontender, trachea is midline. RESPIRATORY: Accessory muscles of breathing are not active. Chest wall movements are symmetric bila terally. LUNGS: Clear to auscultation without wheeze, rhonchi or crepitations. CARDIOVASCULAR: S1 and S2 are heard, regular. Peripheral pulses palpable. No carotid bruit, no per icardial rub. ABDOMEN: Soft, nontender, bowel sounds are heard, no hepatomegaly, no splenomegaly. NEUROLOGIC: Cranial nerves II-XII intact. Deep tendon reflexes are 2+. MUSCULOSKELETAL: Power is 5/5 in all 4 extremities. SKIN: Stapled laceration over the back of her head. LYMPHATIC: No cervical lymphadenopathy. PSYCHIATRIC: Normal mood, normal affect, patient is oriented to person, place, and time. LABORATORY DATA: Ms. Brady's labs and investigations were reviewed. I reviewed her electrocard iogram, which shows normal sinus rhythm, no ST changes to suggest an acute coronary syndrome. I also reviewed her chest x-ray, which does not show any pulmonary infiltrates. She also had a noncontrast CT scan of the brain, which showed a scalp hematoma in the biparietal regions, greater on the right. There were no acute intracranial abnormalities. She has leukocytosis with 13,400 white cells, of w hich 84.9% are neutrophils, normocytic anemia with hemoglobin 11.9, normal platelet count, unremarkab le comprehensive metabolic profile and a troponin I that is normal x2. ASSESSMENT AND PLAN: Ms. Brady is a pleasant 77-year-old lady who was seen at [facility] on 03/04/2018. Her problem list includes: 1. Syncope: Ms. Brady is presenting with what appears to be a syncopal episode. The etiology is unclear, but includes both neurologic and cardiologic entities. She will be monitored on telemetr y. We will check 2D echocardiogram to rule out any valvular abnormalities and consult Cardiology and Neurology services for opinion. Her blood pressure does drop when she is standing up. We will chec k a cortisol level. 2. Diabetes mellitus type 2. We will start patient on Accu-Cheks and insulin sliding scale. 3. Dyslipidemia: We will continue statin. 4. Hypertension: We will resume home medications, monitor vital signs and titrate antihypertensives as needed. Many thanks for allowing me to participate in your patient's care. Please feel free to contact me wi th any questions or concerns. LEVEL OF RISK: High. LEVEL OF COMPLEXITY: High. CODE STATUS: Discussed. Patient is FULL CODE.
--- NOTE | 2018-03-04 18:06 | CON ---
DATE OF CONSULTATION: 03/04/2018 REASON FOR CONSULTATION: Syncope. HISTORY OF PRESENT ILLNESS: Ms. Brady is a very pleasant 77-year-old with no previous cardiac h istory who recently presented with syncope. She states she has had intermittent dizziness noted in t he morning. This occurred upon standing. This morning though she does not have dizziness. She did sit by the side of the bed for several minutes. She got up to get some coffee. The time interval wa s about 5 minutes per patient. She proceeded to the living room and into the kitchen where she passe d out. No predisposing factors. No chest pain, pressure, shortness of breath, other associated symp toms. She has no previous history of underlying coronary disease. No previous history of syncope. She did have a laceration present. PAST MEDICAL HISTORY: Hypothyroidism, diabetes mellitus, hypertension. PAST SURGICAL HISTORY: Shoulder surgery, ankle surgery, back surgery. SOCIAL HISTORY: No current tobacco or alcohol use. ALLERGIES: None. MEDICATIONS: Include clonidine, metformin, metoprolol, Nexium, pravastatin, lisinopril/hydrochloroth iazide, meclizine, and oxybutynin. REVIEW OF SYSTEMS: Ten point review of systems are reviewed and as above, otherwise negative. PHYSICAL EXAMINATION: VITAL SIGNS: Standing blood pressure 96/63, lying blood pressure 112/58, pulse 71. GENERAL: Patient is a pleasant female who is in no acute distress. The patient appears her stated a ge. NEUROLOGIC: The patient is alert and oriented times 3 with no focal neurologic deficits. HEENT: Sclerae without icterus. Mouth has moist mucous membranes with normal pallor. NECK: No JVD. Carotid upstroke brisk. No bruits bilaterally. LUNGS: Clear to auscultation with unlabored respirations. BACK: No scoliosis or kyphosis. CARDIAC: Regular rate and rhythm with normal S1 and S2. No S3 or S4 noted. No significant rubs, mu rmurs, thrills, or gallops noted throughout the precordium. PMI is not displaced. There is no radha ternal heave. ABDOMEN: Soft, nontender, nondistended. No peritoneal signs present. No hepatosplenomegaly. No ab normal striae. EXTREMITIES: 2+ femoral and 2+ dorsalis pedis pulses. No cyanosis, clubbing, or edema. SKIN: No gross abnormalities. PERTINENT LABS: Hemoglobin 11.9. CK-MB of 8.7. Troponin negative. EKG: Normal sinus rhythm, nons pecific ST-T wave changes. IMPRESSION: 1. Syncope. 2. Positive orthostasis. RECOMMENDATIONS: Symptom is likely secondary to volume contraction. She is currently on hydrochloro thiazide. We will discontinue. We will hold all blood pressure medicines for now and revaluate in a .m. We will continue to monitor on telemetry monitoring. We would recommend an echo with Doppler. If echo within normal limits and monitor overnight stable, would recommend a 3-week event recorder to assess for dysrhythmias potentially, although I do feel her symptoms are likely due to volume contra ction.
[2018-03-04] MEDS ORDERED: Pravastatin Sodium 20 MG TAB PO SCH (21:00)
[2018-03-04] MEDS: Oxybutynin 5 MG TAB PO SCH (21:33)
[2018-03-04] MEDS: cloNIDine 0.2 MG TAB PO SCH (21:35)
[2018-03-04] MEDS: Lisinopril/Hydrochlorothiazide 20 mg/12.5 mg Tablet PO SCH (21:35)
[2018-03-05 05:25] LABS: #Eosinphils 0.2 thou/uL (0.0-0.7); #Lymphocytes 1.7 thou/uL (1.20-3.40); #Monocytes 0.5 thou/uL (0.11-0.59); #Neutrophils 4.9 thou/uL (1.40-6.50); %Basophils 0.5 % (0.0-1.0); %Eosinophils 2.8 % (0.0-10.0); %Lymphocytes 22.8 % (21.0-51.0); Hemoglobin 9.3 g/dL (12.0-16.0); Mean Corpuscular HGB CONC 33.4 g/dL (32.0-36.0); Mean Platelet Volume 8.3 fL (7.4-10.4); Platelet Count 209 thou/uL (130-400); RBC Distribution Width 14.4 % (11.5-14.5); White Blood Cell (WBC) Count 7.3 thou/uL (4.8-10.8)
[2018-03-05 05:35] LABS: Anion Gap 10 mmol/L (10-20); BUN (Urea Nitrogen) 15 mg/dL (9.8-20.1); Calc. Creatinine Clearance 106 mL/min (70-130); Calcium 8.2 mg/dL (7.8-10.44); Carbon Dioxide 27 mmol/L (23-31); Chloride 103 mmol/L (98-107); Estimated GFR-MDRD 87; Glucose 108 mg/dL (83-110); Potassium 3.7 mmol/L (3.5-5.1); Sodium 136 mmol/L (136-145)
[2018-03-05] MEDS ORDERED: Levothyroxine Sodium 50 MCG TAB PO SCH (06:00)
[2018-03-05] MEDS: Sodium Chloride 0.9% 1,000 ML IV SCH (06:13)
--- NOTE | 2018-03-05 07:13 | PDOC.CTH ---
Cardiology Progress Note - Subjective Doing well. Awaiting echo - Objective Vital Signs Temp Pulse Resp BP BP BP BP 03/05/18 02:55 98 F 58 L 18 123/59 L 03/04/18 23:15 97.5 F L 72 17 113/53 L 03/04/18 21:35 68 97/55 L 03/04/18 19:38 98.1 F 79 17 113/58 L 114/59 L 114/61 Pulse Ox 03/05/18 02:55 93 L 03/04/18 23:15 94 L 03/04/18 21:35 03/04/18 19:38 96 Weight 204 lb 11.2 oz 03/04/18 03/05/18 03/06/18 06:59 06:59 06:59 Intake Total 1648 Output Total 1150 Balance 498 - Physical Examination General/Neuro: alert & oriented x3, NAD Neck: carotid US brisk, no JVD present Lungs: CTA, unlabored respirations Heart: PMI normal, RRR Abdomen: NT/ND, soft Extremities: + femoral B - Labs Result Diagrams: 03/05/18 05:01 03/05/18 05:01 Troponin/CKMB CK-MB (CK-2) 8.7 ng/mL (0-6.6) H* 03/04/18 09:16 Troponin I Less than 0.010 ng/mL (< 0.028) 03/04/18 15:41 - Assessment/Plan 1. syncope Etiology unkown; pt did have some orthostasis present tele so far negative Recommend 3 week event recorder Echo pending If echo WNL, ok for dc with op fu No driving, swimming or put oneself in harms way such as climbing ladders.
[2018-03-05] MEDS: metFORMIN 500 MG TAB PO SCH ×2 (08:55→18:29)
[2018-03-05] MEDS: Oxybutynin 5 MG TAB PO SCH (08:55)
[2018-03-05] MEDS: cloNIDine 0.2 MG TAB PO SCH (13:05)
[2018-03-05] MEDS: Lisinopril/Hydrochlorothiazide 20 mg/12.5 mg Tablet PO SCH (13:06)
--- NOTE | 2018-03-05 13:11 | PDOC.PN ---
- Subjective Encounter Start Date: 03/05/18 Encounter Start Time: 10:40 Pt seen for followup re: syncope. Denies any chest pain, shortness of breath, fevers or chills. - Objective Resuscitation Status: Resuscitation Status FULL:Full Resuscitation MAR Reviewed: Yes Vital Signs & Weight: Vital Signs (12 hours) Temp Pulse Resp BP BP BP BP 03/05/18 13:06 79 03/05/18 13:05 97/55 L 03/05/18 11:45 98 F 79 20 128/70 03/05/18 08:42 117/58 L 128/67 03/05/18 07:40 98 F 76 18 120/64 03/05/18 02:55 98 F 58 L 18 123/59 L BP Pulse Ox 03/05/18 13:06 03/05/18 13:05 03/05/18 11:45 95 03/05/18 08:42 108/56 L 03/05/18 07:40 93 L 03/05/18 02:55 93 L Weight Weight 204 lb 11.2 oz I&O: 03/04/18 03/05/18 03/06/18 06:59 06:59 06:59 Intake Total 1648 Output Total 1150 Balance 498 Result Diagrams: 03/05/18 05:01 03/05/18 05:01 Additional Labs: Accuchecks 03/05/18 03/04/18 03/04/18 10:35 21:42 16:27 POC Glucose 128 H 220 H 152 H EKG Reviewed by me: Yes (Tele: NSR) Phys Exam - Physical Examination Obese HEENT: moist MMs Neck: supple Respiratory: clear to auscultation bilateral Cardiovascular: RRR Gastrointestinal: soft Neurological: moves all 4 limbs Psychiatric: normal affect Dx/Plan (1) Syncope Code(s): R55 - SYNCOPE AND COLLAPSE Status: Acute Comment: no recurrence. Awaiting echo. no arrhythmias. (2) HTN (hypertension) Code(s): I10 - ESSENTIAL (PRIMARY) HYPERTENSION Status: Chronic Comment: some element of orthostatic hypotension. Monitor vital signs and titrate antihypertensives. (3) DM2 (diabetes mellitus, type 2) Status: Chronic Comment: continue accuchecks, insulin sliding scale (4) Hypothyroidism Code(s): E03.9 - HYPOTHYROIDISM, UNSPECIFIED Status: Chronic Comment: Pt to followup with PCP for management - Plan * . Review of Systems - Review of Systems Respiratory: negative: Cough, Dry, Shortness of Breath, Hemoptysis, SOB with Excertion, Pleuritic Pain, Sputum, Wheezing Cardiovascular: negative: chest pain, palpitations, orthopnea, paroxysmal nocturnal dyspnea, edema, light headedness Neurological: negative: Weakness, Numbness, Incoordination, Change in Speech, Confusion, Seizures - Medications/Allergies Allergies/Adverse Reactions: Allergies Allergy/AdvReac Type Severity Reaction Status Date / Time No Known Allergies Allergy Verified 08/18/17 16:11 Medications: Current Medications Acetaminophen (Tylenol) 650 mg PO Q4H PRN PRN Reason: Headache/Fever or Pain Bisacodyl (Dulcolax) 10 mg PO DAILYPRN PRN PRN Reason: Constipation Clonidine (Catapres) 0.2 mg PO BID [facility] Last Admin: 03/05/18 13:05 Dose: Not Given Dextrose/Water (Dextrose 50%) 25 gm SLOW IVP PRN PRN PRN Reason: Hypoglycemia Glucagon (Glucagon) 1 mg IM PRN PRN PRN Reason: Hypoglycemia Lisinopril/HCTZ (Prinizide 20-12.5) 1 tab PO BID [facility] Last Admin: 03/05/18 13:06 Dose: Not Given Dextrose/Water (D5w) 1,000 mls @ 0 mls/hr IV .Q0M PRN PRN Reason: Hypoglycemia Insulin Human Lispro (Humalog) 0 units SC .MILD SLIDING SCALE PRN PRN Reason: Mild Correctional Scale Levothyroxine Sodium (Synthroid) 50 mcg PO 0600 [facility] Last Admin: 03/05/18 05:02 Dose: 50 mcg Meclizine HCl (Antivert) 25 mg PO QID PRN PRN Reason: Dizziness Metformin HCl (Glucophage) 500 mg PO BID-WM [facility] Last Admin: 03/05/18 08:55 Dose: 500 mg Metoprolol Succinate (Toprol Xl) 25 mg PO DAILY [facility] Last Admin: 03/05/18 08:55 Dose: 25 mg Oxybutynin Chloride (Ditropan) 5 mg PO BID [facility] Last Admin: 03/05/18 08:55 Dose: 5 mg Pantoprazole Sodium (Protonix) 40 mg PO HS [facility] Last Admin: 03/04/18 21:32 Dose: 40 mg Pravastatin Sodium (Pravachol) 10 mg PO QPM [facility] Last Admin: 03/04/18 21:32 Dose: 10 mg
[2018-03-05 16:43] LABS: Free T4 (Free Thyroxine) Less than 0.40 ng/dL (0.70-1.48)
[2018-03-05 20:05] VITALS: BP 122/64; TEMP 98.3
--- NOTE | 2018-03-05 22:55 | CON ---
DATE OF CONSULTATION: 03/05/2018 REFERRING PHYSICIAN: Frank Odom MD REASON FOR CONSULTATION: Syncope. HISTORY OF PRESENT ILLNESS: Ms. Brady is a pleasant 77-year-old female, who has been consulted for evaluation of syncope. The patient reports that she woke up this morning around 6 o'cl ock. She went into the kitchen to make coffee and the next thing she knows, she had passed out. Her family friend found her on the floor. She did regain the consciousness, she knew her surrounding. Her son called the EMS and she was brought to the [facility]. She reports that over t he past few weeks, she has been having increasing episodes of dizziness and lightheadedness, and felt like she is going to pass out. She notes that her blood pressure has been fluctuating drastically. They have been trying to adjust her blood pressure medication and recently her clonidine patch was i ncreased to 0.2 mg. The patient currently denies any headache, chest pain, palpitation, numbness, ti ngling, weakness, dysarthria, dysphagia. PAST MEDICAL HISTORY: Significant for hypertension, diabetes, dyslipidemia. PAST SURGICAL HISTORY: Significant for left shoulder surgery, right ankle surgery, hysterectomy, and back surgery. SOCIAL HISTORY: She denies smoking, alcohol use, or illicit drug use. FAMILY HISTORY: Significant for stroke in her father. CURRENT MEDICATIONS: Please review MAR. ALLERGIES: No known drug allergies. REVIEW OF SYSTEMS: As mentioned above in HPI, otherwise negative. PHYSICAL EXAMINATION: VITAL SIGNS: Blood pressure of 127/58, pulse of 70, temperature of 98.1, respirations of 18, and sat s of 98% on room air. GENERAL: Well-developed, well-nourished female in no apparent distress. RESPIRATORY: Clear to auscultation bilaterally. CARDIOVASCULAR: Regular rate and rhythm. NEUROLOGIC: Mental status: The patient is awake, alert, oriented x3. Speech and language: Fluent speech. Cranial nerves: Pupils are 3 mm and reactive. Visual haines are intact. Extraocular muscl es are intact. No nystagmus. Face is symmetric. Tongue and uvula are midline. Motor exam showed n ormal tone and bulk with 5/5 strength in both upper and lower extremities. Sensory: Sensation is in tact and symmetric. Deep tendon reflexes: 2+ reflexes in both upper and lower extremities. [place] i: Plantar responses flexion bilaterally. Coordination intact to [id number] and finger sarabjit ing bilaterally. LABORATORY DATA: Reviewed, which included CBC, CMP, urinalysis, which is significant for hemoglobin 9.3, hematocrit of 27.9, TSH of 38.2758, otherwise unremarkable. IMAGING STUDIES: CT head without contrast was reviewed, which showed no acute intracranial abnormali ty. IMPRESSION: 1. Syncope. 2. Hypothyroidism. ASSESSMENT AND PLAN: Ms. Brady is a pleasant 77-year-old female, who presented with a syncopal episode. Based on the description it was felt this is likely secondary to blood pressure i nduced or cardiogenic in origin. I will obtain EEG to rule out seizures. I have discussed with the patient and her family and explained that I would not start her on any antiepileptic medication at th is time. If EEG is normal, then the patient needs to be worked up medically for her syncopal episode . No further neurological workup needed from my standpoint. Thank you for consultation.
--- NOTE | 2018-03-06 02:04 | DIS ---
DATE OF ADMISSION: 03/04/2018 DATE OF DISCHARGE: 03/05/2018 PRIMARY CARE PROVIDER: DIVINA Tomas CONDITION OF PATIENT ON THE DAY OF DISCHARGE: Stable. I assessed Ms. Brady on the day of disch argbhupinder. Please refer to my daily progress note for further details regarding this [id number] encount er. CONSULTATIONS DURING THIS HOSPITALIZATION: Cardiology, Dr. Zapata, and Neurology, Dr. Malathi Jon. HOSPITAL COURSE: Ms. Brady is a pleasant, 77-year-old lady, who was admitted to [facility] on 03/04/2018 for a syncopal episode. Please refer to my history and physical not e dated 03/04/2018 for further details. She was seen by Cardiology and Neurology services. EEG was reportedly unremarkable per preliminary report conveyed verbally by neurologist. A 2D echocardiogram showed left ventricular ejection fraction of 50%-55% with E/A flow reversal suggestive of diastolic dysfunction. She had orthostatic hypotension and is receiving education regarding orthostatic hypotension. Cortis ol level was 10.60 at 1540 hours. She had elevated TSH of 38.27, free T3 less than 1 and free T4 les s than 0.4. Her Synthroid dose is being increased to 75 mcg. Cardiology service will arrange for a loop recorder at home. DISCHARGE MEDICATIONS: Nexium 40 mg at bedtime, lisinopril/hydrochlorothiazide 20/12.5 mg 2 times a day, meclizine 25 mg 4 times a day as needed, Glucophage 500 mg 2 times a day, metoprolol succinate 2 5 mg daily, Ditropan 5 mg 2 times a day, pravastatin 10 mg in the evening, Synthroid 75 mcg daily. Clonidine has been discontinued. She has been advised to check her heart rate and blood pressure 3 t imes a day and show the readings to her primary care provider. Many thanks for allowing me to participate in your patient's care. Please feel free to contact me wi th any questions or concerns. DISCHARGE DESTINATION: Home.
[2018-03-06] MEDS ORDERED: Levothyroxine Sodium 75 MCG TAB PO SCH (06:00)
--- NOTE | 2018-03-07 16:18 | EEG ---
Referring Physician: DR. LICHA IBANEZ EEG # [id number] TEST TYPE: ROUTINE PORTABLE INPATIENT DATE OF EEG BEING DONE: 03/05/18 REASON FOR EEG: SYNCOPE EEG DESCRIPTION: This is a 21 channel digital EEG recording. Electrodes are placed using the international 10-20 electrode placement system. The background rhythm is predominately 8-9 hertz, low amplitude Alpha rhythm. PHOTIC STIMULATION: Showed no effect. HYPERVENTILATION: Is not done This EEG is severely degraded by EMG and movement artifact. There are no epileptiform discharges, sharp transients or asymmetry noted. EKG LEAD: Shows 72 beats per minute, regular rhythm. IMPRESSION: THIS IS A NORMAL EEG. Polymer Scientist: [facility] [employer] [facility] Manager: EEG.MS MTDD
== END 2018-03-05 20:45 | disposition home or self-care (01) ==
LOC: ERS 07:43 → 2SW 11:18
PROVIDERS: ADMIT Internal Medicine; ATTEND Internal Medicine
DX: I95.1 Orthostatic hypotension (principal); I10 Essential (primary) hypertension; E11.9 Type 2 diabetes mellitus without complications; E78.5 Hyperlipidemia, unspecified; E03.9 Hypothyroidism, unspecified; Z79.899 Other long term (current) drug therapy
CPT/HCPCS: 12002; 70450; 71046; 80048; 82533; 82550; 82553; 82962 ×2; 84439; 84481; 84484 ×2; 85025; 90471; 90715; 93005; 93306; 95816; 95819; 96361 ×3; 96374; 96376; 97139; 99285; G0378 ×2; 36415; 36416; 80053; 81003; 81015; 84443; J2001; J2270

== ENCOUNTER 2018-03-12 08:20 | Emergency (ER) | payer MEDICARE, MEDICAID ==
[2018-03-12] MEDS ORDERED: Lidocaine 1% w/Epinephrine 1:100K 20 ML VIAL ONE (09:38)
== END 2018-03-12 12:01 | disposition home or self-care (01) ==
LOC: ERS 08:20
DX: S01.01XA Laceration without foreign body of scalp, initial encounter (principal); E11.9 Type 2 diabetes mellitus without complications; I10 Essential (primary) hypertension; Z79.84 Long term (current) use of oral hypoglycemic drugs; Z79.899 Other long term (current) drug therapy; W19.XXXA Unspecified fall, initial encounter
CPT/HCPCS: 12002; J2001

== ENCOUNTER 2018-03-15 10:48 | Outpatient (CLI) | payer MEDICARE, MEDICAID ==
--- NOTE | 2018-03-15 11:45 | RAD ---
RIGHT KNEE 4 VIEWS: Date: 03/15/18 HISTORY: Fall. Right knee pain. FINDINGS/IMPRESSION: Degenerative changes are present. No acute fracture or dislocation is identified. There is suggestion of a joint effusion. POS: [facility]
--- NOTE | 2018-03-15 11:47 | RAD ---
TWO VIEWS CHEST: Date: 03-15-18 Provided Clinical History: Cough. FINDINGS: Comparison 03-04-18. Cardiac and mediastinal silhouette is unchanged in appearance. Lungs appear clear. No pleural fluid o r pneumothorax apparent. Degenerative changes are seen involving the thoracic spine. IMPRESSION: No evidence for an acute cardiopulmonary process. POS: [facility]
== END 2018-03-15 10:49 | disposition home or self-care (01) ==
LOC: RAD-FRANK 10:48
PROVIDERS: ATTEND Nurse Practitioner Family
DX: R05 Cough (principal); M25.561 Pain in right knee; M17.11 Unilateral primary osteoarthritis, right knee
CPT/HCPCS: 71046

== ENCOUNTER 2019-05-27 15:39 | Outpatient (CLI) | payer MEDICARE, MEDICAID ==
--- NOTE | 2019-05-27 16:50 | RAD ---
LUMBAR SPINE THREE VIEWS: History: Low back pain. FINDINGS/IMPRESSION: Comparison is made with made with 01-25-18. Post op changes of posterior small effusion with bilateral transpedicular screws and bone graft mater ial are again seen at L4-5 in good position and alignment. Disc prosthesis remains in place. There is grade I-II anterolisthesis of L4 on L5. Degenerative changes are present in the spine. No acute frac ture or bony destruction is seen. No perihardware lucency is identified to suggest loosening. POS: [facility]
== END 2019-05-27 15:40 | disposition home or self-care (01) ==
LOC: RAD-FRANK 15:39
PROVIDERS: ATTEND Nurse Practitioner Family
DX: M54.5 Low back pain (principal); M47.816 Spondylosis without myelopathy or radiculopathy, lumbar region; Z98.890 Other specified postprocedural states
CPT/HCPCS: 72100

== ENCOUNTER 2021-03-25 15:06 | Outpatient (CLI) | payer MEDICARE, MEDICAID ==
[2021-03-26 01:06] LABS: SARS-CoV-2 PCR by NAA Not Detected (NotDetected)
== END 2021-03-25 15:07 | disposition home or self-care (01) ==
LOC: LABBT 15:06
PROVIDERS: ATTEND Internal Medicine Gastroenterology
DX: R10.11 Right upper quadrant pain (principal); K22.5 Diverticulum of esophagus, acquired; Z20.822 Contact with and (suspected) exposure to COVID-19
CPT/HCPCS: U0003; U0005

== ENCOUNTER 2021-03-29 07:04 | Outpatient (CLI) | payer MEDICARE, MEDICAID | END 2021-03-29 07:05 | disposition home or self-care (01) | LOC: ULT 07:04 | PROVIDERS: ATTEND Internal Medicine Gastroenterology | DX: K22.5 Diverticulum of esophagus, acquired (principal); R10.11 Right upper quadrant pain; R47.02 Dysphasia; R19.2 Visible peristalsis; K76.0 Fatty (change of) liver, not elsewhere classified | CPT/HCPCS: 74220; 76705 ==

== ENCOUNTER 2023-06-29 11:37 | Outpatient (CLI) | payer MEDICARE, MEDICAID | END 2023-06-29 11:38 | disposition home or self-care (01) | LOC: RAD 11:37 | PROVIDERS: ATTEND Nurse Practitioner Family | DX: M25.561 Pain in right knee (principal); M17.11 Unilateral primary osteoarthritis, right knee ==

== ENCOUNTER 2023-08-10 10:24 | Outpatient (CLI) | payer MEDICARE, MEDICAID ==
[2023-08-10 12:09] LABS: #Basophils 0.1 10x3/uL (0.0-0.2); #Eosinphils 0.2 10x3/uL (0.0-0.5); #Monocytes 0.7 10x3/uL (0.0-1.1); #Neutrophils 4.9 10x3/uL (1.5-8.4); %Basophils 1.3 % (0.0-2.0); %Eosinophils 2.7 % (0.0-6.0); %Lymphocytes 24.9 % (18.0-47.0); %Monocytes 8.3 % (0.0-10.0); %Neutrophils 62.3 % (40.0-75.0); Hematocrit 37.5 % (34.9-44.5); Mean Corpuscular HGB CONC 34.7 g/dL (32.0-36.0); Mean Corpuscular Hemoglobin 32.3 pg (27.0-33.0); Mean Corpuscular Volume 93.1 fl (81.6-98.3); Mean Platelet Volume 11.2 fl (7.4-10.4); Platelet Count 260 10x3/uL (150-450); RBC Distribution Width 14.4 % (11.5-14.5); Red Blood Cell (RBC) Count 4.03 10x6/uL (3.90-5.03); White Blood Cell (WBC) Count 7.9 10x3/uL (3.5-10.5)
[2023-08-10 12:25] LABS: INR-International Normal Ratio 1.1; Prothrombin Time 11.9 sec (9.5-12.1)
[2023-08-10 12:32] LABS: Anion Gap 15 mmol/L (10-20); BUN (Urea Nitrogen) 15 mg/dL (9.8-20.1); Calc. Creatinine Clearance 0 mL/min (70-130); Calcium 8.7 mg/dL (7.8-10.44); Carbon Dioxide 26 mmol/L (23-31); Chloride 100 mmol/L (98-107); Estimated GFR 72; Glucose 113 mg/dL (83-110); Potassium 3.5 mmol/L (3.5-5.1); Sodium 137 mmol/L (136-145)
== END 2023-08-10 10:25 | disposition home or self-care (01) ==
LOC: LABBT 10:24
PROVIDERS: ATTEND Orthopaedic Surgery
DX: Z01.818 Encounter for other preprocedural examination (principal); M17.11 Unilateral primary osteoarthritis, right knee
CPT/HCPCS: 80048; 85025; 85610; 87081; 93005; 93010

== ENCOUNTER 2023-08-15 05:53 | Observation (INO) | payer MEDICARE, MEDICAID ==
[2023-08-15] MEDS ORDERED: Vancomycin (BATCH) 1.5 GM/300 ML BAG ONE (06:04)
[2023-08-15] MEDS ORDERED: Tranexamic Acid 1,000 MG/10 ML VIAL ONE (06:04)
[2023-08-15] MEDS ORDERED: Sodium Chloride 0.9% 100 ML ONE ×2 (06:04→06:50)
[2023-08-15] MEDS ORDERED: Lidocaine 1% (PF) 30 ML VIAL ONE (06:26)
[2023-08-15] MEDS ORDERED: Midazolam HCl 2 mg/2 ml Vial ONE (06:26)
[2023-08-15] MEDS ORDERED: EPINEPHrine 1 MG/ML VIAL ONE (06:50)
[2023-08-15] MEDS ORDERED: CEFAZOLIN 2 GM VIAL ONE (06:50)
[2023-08-15] MEDS ORDERED: Bupivacaine 0.25% HCL 30 ML VIAL ONE (06:51)
[2023-08-15] MEDS ORDERED: Sodium Chloride 0.9% 250 ML 250 ML ONE (06:56)
[2023-08-15] MEDS ORDERED: Phenylephrine 10 MG/ML VIAL ONE (06:56)
[2023-08-15] MEDS ORDERED: PROPOFOL 20 ML ONE (07:04)
[2023-08-15] MEDS ORDERED: Lidocaine 2% PF 5 ML VIAL ONE (07:04)
[2023-08-15] MEDS ORDERED: Ondansetron PF 4 MG/2 ML Vial ONE (07:14)
[2023-08-15] MEDS ORDERED: fentaNYL 50 mcg/mL 1 mL Vial SLOW IVP PRN (07:19)
[2023-08-15] MEDS ORDERED: Bupivacaine PF 0.5% 30 ML VIAL ONE (07:20)
[2023-08-15] MEDS ORDERED: Zolpidem Tartrate 5 MG TAB PO PRN ×2 (07:30→09:03)
[2023-08-15] MEDS ORDERED: traMADol HCl 50 MG TAB PO PRN (07:30)
[2023-08-15] MEDS ORDERED: HYDROcodone/Acetaminophen 10/325 mg Tablet PO PRN (07:30)
[2023-08-15] MEDS ORDERED: Ropivacaine 0.2% 550 ML 550 ML NERVE BLCK SCH (07:30)
[2023-08-15] MEDS ORDERED: Ondansetron PF 4 MG/2 ML Vial IVP PRN ×2 (07:30→09:03)
[2023-08-15] MEDS ORDERED: Promethazine HCl 25 MG/ML VIAL IM PRN ×3 (07:30→09:03)
[2023-08-15] MEDS ORDERED: Ondansetron HCl/PF 4 MG/2 ML Vial IVP PRN (07:37)
[2023-08-15] MEDS ORDERED: diphenhydrAMINE 25 MG CAP PO PRN (09:03)
[2023-08-15] MEDS ORDERED: Acetaminophen 325 MG TAB PO PRN (09:03)
[2023-08-15] MEDS ORDERED: fentaNYL 50 mcg/mL 1 mL Vial ONE (09:20)
[2023-08-15] MEDS ORDERED: Ketorolac Tromethamine 30 MG (1 mL) VIAL ONE (09:20)
[2023-08-15] MEDS: Sodium Chloride 0.9% 1,000 ML IV SCH (10:15)
[2023-08-15] MEDS: Ferrous Gluconate 324 MG TAB PO SCH (10:47)
[2023-08-15] MEDS: Multivitamin W/ Minerals 1 TAB PO SCH (10:47)
[2023-08-15] MEDS: Aspirin 81 mg Enteric Coated Tablet PO SCH (10:47)
[2023-08-15] MEDS: CEFAZOLIN 2 GM in Sodium Chloride 0.9% 100 ML IVPB SCH (17:01)
[2023-08-15] MEDS: HYDROcodone/Acetaminophen 10/325 mg Tablet PO PRN (17:01)
[2023-08-15] MEDS: Ketorolac Tromethamine 30 MG (1 mL) VIAL IVP SCH (17:02)
[2023-08-15 18:14] VITALS: BMI 39.5
[2023-08-15] MEDS: Senokot S 8.6-50 MG TAB PO SCH (19:20)
[2023-08-15] MEDS: traMADol HCl 50 MG TAB PO PRN (21:01)
[2023-08-16 06:37] LABS: Hematocrit 27.1 % (36.0-47.0); Hemoglobin 8.9 g/dL (12.0-16.0); Mean Corpuscular HGB CONC 32.8 g/dL (32.0-36.0); Mean Corpuscular Hemoglobin 31.8 pg (27.0-31.0); Mean Corpuscular Volume 96.8 fl (78.0-98.0); Mean Platelet Volume 11.3 fL (7.4-10.4); Platelet Count 188 10x3/uL (130-400); RBC Distribution Width 14.9 % (11.5-14.5); White Blood Cell (WBC) Count 8.5 10x3/uL (4.8-10.8)
[2023-08-16 08:57] VITALS: BP 120/66; TEMP 98.3
== END 2023-08-16 12:50 | disposition home or self-care (01) ==
LOC: SDC 05:53 → SJJU 08:00
PROVIDERS: ADMIT Orthopaedic Surgery; ATTEND Orthopaedic Surgery
PROC: 0SRC0JZ Replacement of Right Knee Joint with Synthetic Substitute, Open Approach (ICD-10-PCS; principal; 2023-08-15)
DX: M17.11 Unilateral primary osteoarthritis, right knee (principal); I10 Essential (primary) hypertension; E03.9 Hypothyroidism, unspecified; E78.00 Pure hypercholesterolemia, unspecified; Z90.89 Acquired absence of other organs; Z90.710 Acquired absence of both cervix and uterus; Z79.899 Other long term (current) drug therapy
CPT/HCPCS: 27447; 73560; 82962 ×2; 85027; 97110 ×2; 97116 ×2; 97530; A4306; C1713; C1776; J0171; J3010; J3370; 36415; 36416; J0665; J1885; J2001; J2250; J2371; J2405; J2704; J2795; J3490; J7050

== ENCOUNTER 2025-04-25 08:53 | Inpatient (IN) | payer MEDICARE, MEDICAID ==
[2025-04-25] MEDS ORDERED: Iopamidol-370 76% 500 ML MDV (1 ML CHARGE) ONE (11:16)
[2025-04-25 13:47] LABS: #Basophils 0.04 10x3/uL (0.0-0.2); #Eosinophils 0.28 10x3/uL (0.0-0.7); #Monocytes 0.48 10x3/uL (0.11-0.59); #Neutrophils 4.19 10x3/uL (1.40-6.50); %Basophils 0.7 % (0.0-1.0); %Eosinophils 4.6 % (0.0-10.0); %Lymphocytes 18.4 % (21.0-51.0); %Monocytes 7.8 % (0.0-10.0); %Neutrophils 68.3 % (42.0-75.0); Hematocrit 34.5 % (36.0-47.0); Hemoglobin 11.7 g/dL (12.0-16.0); Mean Corpuscular Hemoglobin 29.8 pg (27.0-31.0); Mean Corpuscular Volume 87.8 fL (78.0-98.0); Platelet Count 180 10x3/uL (130-400); Red Blood Cell (RBC) Count 3.93 mill/uL (4.20-5.40); White Blood Cell (WBC) Count 6.13 10x3/uL (4.8-10.8)
[2025-04-25 14:05] LABS: ALT (SGPT) 18 U/L (Less than 34); AST (SGOT) 31 U/L (11-34); Albumin 3.6 g/dL (3.1-4.5); Alkaline Phosphatase 96 U/L (40-110); Anion Gap 15 mmol/L (10-20); BUN (Urea Nitrogen) 23 mg/dL (9.8-20.1); Bilirubin, Total 0.6 mg/dL (0.3-1.2); Calc. Creatinine Clearance 0 mL/min (70-130); Calcium 9.0 mg/dL (7.8-10.44); Carbon Dioxide 27 mmol/L (23-31); Chloride 104 mmol/L (98-107); Globulin 2.9 g/dL (2.4-3.5); Glucose 85 mg/dL (83-110); Lipase 22 U/L (8-78); Potassium 4.1 mmol/L (3.5-5.1); Sodium 142 mmol/L (136-145)
[2025-04-25] MEDS ORDERED: Cefepime 2 GM VIAL ONE (16:39)
[2025-04-25] MEDS ORDERED: VANCOMYCIN 2 GRAM/400 ML BAG ONE (17:02)
[2025-04-25 17:06] LABS: INR-International Normal Ratio 1.2; PTT 35.6 sec (22.9-36.1); Prothrombin Time 14.9 sec (12.0-14.7)
[2025-04-25 17:45] LABS: Bacteria/HPF None Seen HPF (None Seen); CAUTI Indications for Culture Acute Hematuria; Glucose, Urine (Dipstick) Normal (Negative); Leukocyte Negative Leu/uL (Negative); Protein, Urine (Dipstick) Negative (Neg-Trace); RBC/HPF 0-3 HPF (0-3); Specific Gravity, Urine 1.044 (1.002-1.036); WBC/HPF 0-3 HPF (0-3)
[2025-04-25 17:53] LABS: Urine Culture Reflex No No
[2025-04-25] MEDS ORDERED: Glucagon 1 MG/ML KIT IM PRN (18:11)
[2025-04-25] MEDS ORDERED: Dextrose 50% Abboject 50 ML SYRINGE SLOW IVP PRN (18:11)
[2025-04-25] MEDS ORDERED: Ondansetron PF 4 MG/2 ML Vial IVP PRN (18:11)
[2025-04-25 21:22] VITALS: BMI 29.0
[2025-04-26 05:53] LABS: #Basophils 0.04 10x3/uL (0.0-0.2); #Eosinophils 0.37 10x3/uL (0.0-0.7); #Monocytes 0.49 10x3/uL (0.11-0.59); #Neutrophils 3.99 10x3/uL (1.40-6.50); %Basophils 0.7 % (0.0-1.0); %Eosinophils 6.5 % (0.0-10.0); %Lymphocytes 13.7 % (21.0-51.0); %Monocytes 8.6 % (0.0-10.0); %Neutrophils 70.1 % (42.0-75.0); Hematocrit 34.0 % (36.0-47.0); Hemoglobin 10.9 g/dL (12.0-16.0); Mean Corpuscular Hemoglobin 29.7 pg (27.0-31.0); Mean Corpuscular Volume 92.6 fL (78.0-98.0); Platelet Count 186 10x3/uL (130-400); Red Blood Cell (RBC) Count 3.67 mill/uL (4.20-5.40); White Blood Cell (WBC) Count 5.69 10x3/uL (4.8-10.8)
[2025-04-26] MEDS: Vancomycin 1 GM in Premix 1 BAG IVPB SCH (06:02)
[2025-04-26 06:33] LABS: Vancomycin, Random 15.5 ug/mL (See Comment)
[2025-04-26 06:39] LABS: Anion Gap 14 mmol/L (10-20); BUN (Urea Nitrogen) 21 mg/dL (9.8-20.1); Calc. Creatinine Clearance 82 mL/min (70-130); Calcium 8.8 mg/dL (7.8-10.44); Carbon Dioxide 27 mmol/L (23-31); Chloride 106 mmol/L (98-107); Glucose 86 mg/dL (83-110); Potassium 3.9 mmol/L (3.5-5.1); Sodium 143 mmol/L (136-145)
[2025-04-26] MEDS: FLU (Fluad Triv) 25-26 (65UP)PF 45 MCG/0.5 ML Syringe IM ONE (08:33)
[2025-04-26] MEDS: Sertraline 25 MG TAB PO SCH (08:33)
[2025-04-26] MEDS: Furosemide 20 MG TAB PO SCH (08:33)
[2025-04-26] MEDS ORDERED: Enoxaparin 40 MG (0.4 mL) SYRINGE SC SCH (09:00)
[2025-04-27] MEDS: Acetaminophen 325 MG TAB PO PRN (06:09)
[2025-04-27] MEDS: Cefepime 2 GM VIAL ONE (13:33)
[2025-04-28 05:20] LABS: Vancomycin, Random 10.3 ug/mL (See Comment)
[2025-04-28] MEDS: Enoxaparin 40 MG (0.4 mL) SYRINGE SC SCH (09:41)
[2025-04-29 11:13] VITALS: BP 126/73; TEMP 97.4
== END 2025-04-29 12:04 | disposition home health service (06) | DRG 552 ==
LOC: ERS 08:53 → MSONC 17:11 → OBSVTOIN 17:11
PROVIDERS: ADMIT Internal Medicine; ATTEND Internal Medicine
DX: M48.02 Spinal stenosis, cervical region (principal); M50.31 Other cervical disc degeneration, high cervical region; E11.9 Type 2 diabetes mellitus without complications; I10 Essential (primary) hypertension; K21.9 Gastro-esophageal reflux disease without esophagitis; I72.4 Aneurysm of artery of lower extremity; I25.10 Atherosclerotic heart disease of native coronary artery without angina pectoris; E89.0 Postprocedural hypothyroidism; Z96.653 Presence of artificial knee joint, bilateral; Z96.641 Presence of right artificial hip joint; Z98.890 Other specified postprocedural states; Z90.710 Acquired absence of both cervix and uterus; Z79.02 Long term (current) use of antithrombotics/antiplatelets; Z79.890 Hormone replacement therapy; Z79.82 Long term (current) use of aspirin; I25.2 Old myocardial infarction; Z23 Encounter for immunization
CPT/HCPCS: 36415; 36416; 70450; 70553; 72125; 72156; 72157; 72158; 74177; 76376; 80048; 80053; 80202; 81001; 83605; 83690; 85025; 85610; 85730; 86141; 87040; 90653; 93005; 96365; 96375; 96376; J0692; J1100; J1650; J1815; J3010; J3373; J3375; J7030; Q9967

== ENCOUNTER 2025-05-17 11:02 | Emergency (ER) | payer MEDICARE, MEDICAID ==
[2025-05-17] MEDS ORDERED: Lidocaine 1% w/Epinephrine 1:100K 20 ML VIAL ONE (11:32)
== END 2025-05-17 12:18 ==
LOC: ERS 11:02
DX: S51.811A Laceration without foreign body of right forearm, initial encounter (principal); E11.9 Type 2 diabetes mellitus without complications; I10 Essential (primary) hypertension; W22.01XA Walked into wall, initial encounter
CPT/HCPCS: 99282